=== PATIENT | male | born 1965 | race Caucasian/White ===

== ENCOUNTER 2017-01-18 10:28 | Inpatient (IN) | payer OTHER ==
[~2017-01-18] VITALS: Ht 175.3 cm; Wt 90.3 kg
[~2017-01-18 10:28] MED LIST: ASPI-770 PO; DILT180C53 PO; LISI-170 PO; METF10002 PO
[2017-01-18] MEDS ORDERED: DILTIAZEM 5 MG/ML, 5ML ONE (10:56)
[2017-01-18] MEDS ORDERED: LORazepam 2 MG/ML, 1ML IVPush PRN ×2 (11:00→12:00)
[2017-01-18] MEDS ORDERED: DILTIAZEM 5 MG/ML, 5ML IV ONE ×2 (11:00→12:00)
[2017-01-18] MEDS ORDERED: SODIUM CHLORIDE 0.9% 1,000ML IVBOLUS ONE (11:00)
[2017-01-18] MEDS ORDERED: SODIUM CHLORIDE FLUSH 10ML SYR IVF ONE (11:00)
[2017-01-18] MEDS ORDERED: MAGNESIUM SULFATE 1 GM, THIAMINE 100 MG, FOLIC ACID 1 MG, MVI ADULT 10 ML in SODIUM CHL... IV ONE (11:00)
[2017-01-18 11:25] LABS: ASPARTATE AMINO TRANSFERASE 15 U/L (15-37); BLOOD UREA NITROGEN 10 mg/dL (7-18)
[2017-01-18 11:31] LABS: IS PT STATUS REG ER OR PRE ER? YES
[2017-01-18] MEDS ORDERED: DILTIAZEM 125 MG in DEXTROSE 5% 100 ML IV SCH (11:41)
[2017-01-18] MEDS ORDERED: SODIUM CHLORIDE FLUSH 10ML SYR IVF PRN (12:00)
[2017-01-18] MEDS ORDERED: DILTIAZEM 125 MG in SODIUM CHLORIDE 0.9% 100 ML IV SCH (12:00)
[2017-01-18] MEDS ORDERED: LORazepam 2 MG/ML, 1ML ONE (12:22)
[2017-01-18] MEDS ORDERED: ENOXAPARIN 40 MG/0.4 ML SQ SCH (14:30)
[2017-01-18] MEDS ORDERED: LORazepam 2 MG/ML, 1ML IV PRN ×3 (14:30)
[2017-01-18] MEDS ORDERED: ACETAMINOPHEN 325 MG TABLET PO PRN (14:30)
[2017-01-18] MEDS ORDERED: ONDANSETRON 2MG/ML, 2ML IVP PRN (14:30)
[2017-01-18] MEDS: NICOTINE 14MG/24 HR PATCH.TD24 TD SCH (14:30)
[2017-01-18] MEDS ORDERED: DOCUSATE 100 MG CAPSULE PO PRN (14:30)
[2017-01-18] MEDS ORDERED: MORPHINE SULFATE 4 MG/ML, 1ML IVPush PRN (14:30)
[2017-01-18] MEDS ORDERED: LORazepam 1MG TABLET PO PRN (14:30)
[2017-01-18] MEDS ORDERED: POLYETHYLENE GLYCOL 17 GM PACKET PO PRN (14:30)
[2017-01-18] MEDS ORDERED: LORazepam 0.5MG TABLET PO PRN (14:30)
[2017-01-18 14:55] VITALS: BP 137/97
[2017-01-18] MEDS: INSULIN REGULAR 100 UNITS/ML, 3ML VIAL SQ-INSULIN SCH ×2 (16:00→20:22)
[2017-01-18 16:08] VITALS: BP 158/89
[2017-01-18] MEDS: NS + 20MEQ KCL 1,000 ML IV SCH (20:21)
[2017-01-18] MEDS: BEER 12 OZ CAN PO SCH (20:21)
[2017-01-18 21:34] VITALS: BP 145/82
[2017-01-18] MEDS: DILTIAZEM 125 MG in SODIUM CHLORIDE 0.9% 100 ML IV PRN (21:47)
[2017-01-19 02:40] VITALS: BP 154/97
[2017-01-19] MEDS: LORazepam 1MG TABLET PO PRN ×2 (02:44→23:56)
[2017-01-19] MEDS: NS + 20MEQ KCL 1,000 ML IV SCH ×2 (05:04→11:00)
[2017-01-19] MEDS: BEER 12 OZ CAN PO SCH ×4 (05:41→20:55)
[2017-01-19 05:49] LABS: BLOOD UREA NITROGEN 8 mg/dL (7-18)
[2017-01-19 05:57] LABS: IS PT STATUS REG ER OR PRE ER? NO
[2017-01-19 07:35] VITALS: BP 137/93
[2017-01-19] MEDS: INSULIN REGULAR 100 UNITS/ML, 3ML VIAL SQ-INSULIN SCH ×4 (07:37→20:56)
[2017-01-19] MEDS: DILTIAZEM 125 MG in SODIUM CHLORIDE 0.9% 100 ML IV PRN (10:36)
[2017-01-19] MEDS: DILTIAZEM CD 180 MG CAP.ER.24H PO SCH (10:40)
[2017-01-19] MEDS: ASPIRIN 81 MG TABLET CHEW PO SCH (10:40)
[2017-01-19] MEDS: metFORMIN 500 MG TABLET PO SCH (10:41)
[2017-01-19] MEDS: LISINOPRIL 20 MG TABLET PO SCH (10:41)
[2017-01-19] MEDS: APIXABAN 5 MG TABLET PO SCH ×2 (11:42→20:56)
[2017-01-19] MEDS: POTASSIUM CHLORIDE 20 MEQ, MAGNESIUM SULFATE 1 GM, THIAMINE 100 MG, FOLIC ACID 1 MG, MV... IV SCH (13:35)
[2017-01-19 14:23] VITALS: BP 124/85
[2017-01-19] MEDS: NICOTINE 14MG/24 HR PATCH.TD24 TD SCH (14:30)
[2017-01-19] MEDS: OXYcodone IR 5MG TABLET PO PRN ×2 (17:43→21:41)
[2017-01-19 19:54] VITALS: BP 124/86
[2017-01-20 01:45] VITALS: BP 142/93
[2017-01-20] MEDS: BEER 12 OZ CAN PO SCH ×3 (05:16→16:00)
[2017-01-20 07:20] VITALS: BP 147/95
[2017-01-20] MEDS: metFORMIN 500 MG TABLET PO SCH (07:51)
[2017-01-20] MEDS: APIXABAN 5 MG TABLET PO SCH (07:52)
[2017-01-20] MEDS: DILTIAZEM CD 180 MG CAP.ER.24H PO SCH (07:55)
[2017-01-20] MEDS: LISINOPRIL 20 MG TABLET PO SCH (07:55)
[2017-01-20] MEDS: ASPIRIN 81 MG TABLET CHEW PO SCH (07:55)
[2017-01-20] MEDS: INSULIN REGULAR 100 UNITS/ML, 3ML VIAL SQ-INSULIN SCH ×3 (08:27→16:00)
[2017-01-20] MEDS ORDERED: DILTIAZEM 5 MG/ML, 5ML IVPush ONE (10:00)
[2017-01-20] MEDS: POTASSIUM CHLORIDE 20 MEQ, MAGNESIUM SULFATE 1 GM, THIAMINE 100 MG, FOLIC ACID 1 MG, MV... IV SCH (12:56)
[2017-01-20 13:32] VITALS: BP 129/89
[2017-01-20] MEDS: NICOTINE 14MG/24 HR PATCH.TD24 TD SCH (14:30)
[2017-01-20] MEDS ORDERED: DILTIAZEM 90 MG CAP.ER.12H PO SCH (17:00)
[2017-01-20] MEDS ORDERED: DILT180C53 PO ×2 (17:29→17:33)
[2017-01-20] MEDS ORDERED: APIX5TAB PO (17:29)
== END 2017-01-20 18:13 | disposition home or self-care (01) | DRG 308 ==
LOC: ED 11:06 → EDIP 11:49 → 5SO 13:28
PROVIDERS: ADMIT Family Medicine; ATTEND Family Medicine
PROC: 0T9B70Z Drainage of Bladder with Drainage Device, Via Natural or Artificial Opening (ICD-10-PCS; principal; 2017-01-20)
DX: I48.0 Paroxysmal atrial fibrillation (principal); I50.31 Acute diastolic (congestive) heart failure; F10.239 Alcohol dependence with withdrawal, unspecified; D68.59 Other primary thrombophilia; G72.1 Alcoholic myopathy; I11.0 Hypertensive heart disease with heart failure; I48.92 Unspecified atrial flutter; E11.9 Type 2 diabetes mellitus without complications; E07.9 Disorder of thyroid, unspecified; F17.200 Nicotine dependence, unspecified, uncomplicated; I27.2 Other secondary pulmonary hypertension; Z82.3 Family history of stroke; Z80.0 Family history of malignant neoplasm of digestive organs; Z66 Do not resuscitate; Z91.19 Patient's noncompliance with other medical treatment and regimen
CPT/HCPCS: 36415; 71010; 80048; 80053; 81003; 82962; 83735; 83880; 84100; 84443; 84484; 85025; 85520; 85610; 93005; 96361; 96374; 96375; 96376; 99285; J1650; J1815; J3411; J3475; J3480; J2060; J7030

== ENCOUNTER 2020-03-08 14:22 | Emergency (ER) | payer OTHER ==
[~2020-03-08] VITALS: Ht 175.3 cm; Wt 89.0 kg
[~2020-03-08 14:22] MED LIST changes: +APIX5TAB PO; -ASPI-770 PO; +ASPI81TA59 PO
--- NOTE | 2020-03-08 15:27 | NUR ---
BREAK RN. PT STATES DIZZINESS STARTING THIS AM. STATES HE WENT TO WORK AND CONTINUED TO FEEL DIZZY, 911 CALLED AND PT REFUSED TRANSPORT. PT DROVE SELF TO ER. PT IS CURRENTLY A&OX4, ABLE TO ANSWER ALL QUESTIONS AND FOLLOWS COMMANDS. EKG COMPLETED IN TRIAGE. PT PLACED ON MONITORS, IV STARTED PER ORDERS. IVF BOLUS INITIATED, LABS DRAWN AND SENT TO LAB. PT IN NO DISTRESS.
[2020-03-08] MEDS ORDERED: SODIUM CHLORIDE 0.9% 1,000ML IVBOLUS ONE (15:30)
[2020-03-08] MEDS ORDERED: SODIUM CHLORIDE FLUSH 10ML SYR IVF ONE (15:30)
[2020-03-08 15:34] LABS: BASOPHILS # (AUTO) 0.05 x10^3/uL (0-0.1); BASOPHILS % (AUTO) 1 % (0-1); EOSINOPHILS # (AUTO) 0.02 x10^3/uL (0-0.4); EOSINOPHILS % (AUTO) 0 % (1-7); LYMPHOCYTES # (AUTO) 1.79 x10^3/uL (1-3.4); LYMPHOCYTES % (AUTO) 20 % (22-44); MD NO; MEAN CORPUSCULAR HEMOGLOBIN 32.6 pg (27.5-34.5); MEAN CORPUSCULAR HGB CONC 33.6 g/dL (33.2-36.2); MEAN PLATELET VOLUME 7.2 fL (7.4-10.4); MONOCYTES # (AUTO) 0.47 x10^3/uL (0.2-0.8); MONOCYTES % (AUTO) 5 % (2-9); NEUTROPHILS # (AUTO) 6.65 x10^3/uL (1.8-6.8); NEUTROPHILS % (AUTO) 74 % (42-75); PLATELET COUNT 229 x10^3/uL (130-400); RED BLOOD COUNT 5.32 x10^6/uL (4.38-5.82); RED CELL DISTRIBUTION WIDTH 13.6 % (9.4-14.8)
[2020-03-08 15:36] LABS: ALANINE AMINOTRANSFERASE 56 U/L (12-78); ALBUMIN 3.5 g/dL (3.4-5.0); ANION GAP 13 mmol/L (5-15); CALCIUM 7.9 mg/dL (8.5-10.1); CHLORIDE 103 mmol/L (98-107); CREATININE 1.36 mg/dL (0.7-1.3)
[2020-03-08 15:39] LABS: ALKALINE PHOSPHATASE 62 U/L (45-117); BILIRUBIN,TOTAL 0.4 mg/dL (0.2-1.0); TOTAL PROTEIN 7.3 g/dL (6.4-8.2)
[2020-03-08 16:13] LABS: INTERNATIONAL NORMALIZED RATIO 2.88 (0.93-1.1); PROTHROMBIN TIME 30.9 Seconds (9.6-11.5)
[2020-03-08] MEDS ORDERED: LORazepam 2 MG/ML, 1ML ONE (17:08)
[2020-03-08] MEDS ORDERED: LORazepam 2 MG/ML, 1ML IVPush ONE (17:30)
[2020-03-08 17:44] VITALS: BP 134/88
== END 2020-03-08 17:47 | disposition home or self-care (01) ==
LOC: ED 16:24
DX: E86.0 Dehydration (principal); E86.1 Hypovolemia; F10.239 Alcohol dependence with withdrawal, unspecified; R10.84 Generalized abdominal pain; R06.02 Shortness of breath; R42 Dizziness and giddiness; I10 Essential (primary) hypertension; E11.9 Type 2 diabetes mellitus without complications; I48.91 Unspecified atrial fibrillation; I48.92 Unspecified atrial flutter; F17.200 Nicotine dependence, unspecified, uncomplicated; Y90.0 Blood alcohol level of less than 20 mg/100 ml
CPT/HCPCS: 71045; 80053; 82962; 83690; 85025; 85610; 85730; 93005; 96360; 99285; J7030

== ENCOUNTER 2020-03-09 14:22 | Emergency (ER) | payer OTHER ==
[~2020-03-09] VITALS: Ht 175.3 cm; Wt 88.0 kg
--- NOTE | 2020-03-09 14:59 | NUR ---
PT BIB [facility] FOR COMPLAINTS OF ACUTE ALCOHOL INTOXICATION. NO INJURY OR PHYSICAL COMPLAINT. PT STATES HE WOULD LIKE HELP GETTING SOBER AND INTO A TREATMENT CENTER. ERP AT BEDSIDE, PT HYPOTENSIVE. FLUID BOLUS ORDERED PER VERBAL ORDERS AND ADMINISTERED. PT A&Ox4, RESPONSIVE APPROPRIATELY. CENIES ANY FURTHER NEEDS AT THIS TIME. CALL LIGHT IN REACH.
[2020-03-09] MEDS ORDERED: THIAMINE 100 MG in SODIUM CHLORIDE 0.9% 50 ML IVPB ONE (15:00)
[2020-03-09] MEDS ORDERED: SODIUM CHLORIDE 0.9% 1,000ML IVBOLUS ONE ×2 (15:00→16:00)
[2020-03-09 15:26] LABS: BASOPHILS # (AUTO) 0.02 x10^3/uL (0-0.1); BASOPHILS % (AUTO) 0 % (0-1); EOSINOPHILS # (AUTO) 0.04 x10^3/uL (0-0.4); EOSINOPHILS % (AUTO) 1 % (1-7); LYMPHOCYTES # (AUTO) 2.29 x10^3/uL (1-3.4); LYMPHOCYTES % (AUTO) 36 % (22-44); MD NO; MEAN CORPUSCULAR HEMOGLOBIN 32.9 pg (27.5-34.5); MEAN CORPUSCULAR HGB CONC 33.8 g/dL (33.2-36.2); MEAN CORPUSCULAR VOLUME 97.4 fL (81-97); MONOCYTES # (AUTO) 0.67 x10^3/uL (0.2-0.8); MONOCYTES % (AUTO) 11 % (2-9); NEUTROPHILS # (AUTO) 3.35 x10^3/uL (1.8-6.8); NEUTROPHILS % (AUTO) 53 % (42-75); PLATELET COUNT 179 x10^3/uL (130-400); RED BLOOD COUNT 4.53 x10^6/uL (4.38-5.82); RED CELL DISTRIBUTION WIDTH 13.1 % (9.4-14.8)
[2020-03-09 15:33] LABS: CHLORIDE 108 mmol/L (98-107)
[2020-03-09 15:34] LABS: ALANINE AMINOTRANSFERASE 43 U/L (12-78); ALBUMIN 2.8 g/dL (3.4-5.0); ANION GAP 10 mmol/L (5-15); CALCIUM 7.2 mg/dL (8.5-10.1); CREATININE 1.06 mg/dL (0.7-1.3)
[2020-03-09 15:42] LABS: ALKALINE PHOSPHATASE 49 U/L (45-117); BILIRUBIN,TOTAL 0.4 mg/dL (0.2-1.0); TOTAL PROTEIN 5.9 g/dL (6.4-8.2)
[2020-03-09 16:55] LABS: ACETONE, SERUM Negative (Negative)
--- NOTE | 2020-03-09 17:19 | NUR ---
PT IN BED, EATING HIS MEAL AND TALKING ANIMATEDLY ON THE PHONE. DENIES ANY NEEDS OR CONCERNS AT THIS TIME. CALL LIGHT IN REACH.
--- NOTE | 2020-03-09 17:58 | NUR ---
PT UP TO RESTROOM, NO PHYSICAL ASSISTANCE NECESSARY. PT RETURNED TO BED WITHOUT ANY ISSUE. CALL LIGHT IN REACH.
[2020-03-09] MEDS ORDERED: CHLORDIAZEPOXIDE 25 MG CAPSULE ONE (21:29)
[2020-03-09] MEDS ORDERED: CHLORDIAZEPOXIDE 25 MG CAPSULE PO ONE (21:30)
--- NOTE | 2020-03-09 21:36 | NUR ---
task rn: pt ambulates to restroom with steady gait. pt iv d/c with tip intact. pt vss and updated in emr.
[2020-03-09 21:37] VITALS: BP 141/77
== END 2020-03-09 21:58 | disposition home or self-care (01) ==
LOC: ED 19:09
DX: F10.220 Alcohol dependence with intoxication, uncomplicated (principal); I95.9 Hypotension, unspecified; I10 Essential (primary) hypertension; E11.9 Type 2 diabetes mellitus without complications; I48.91 Unspecified atrial fibrillation; Z95.0 Presence of cardiac pacemaker; Y90.9 Presence of alcohol in blood, level not specified
CPT/HCPCS: 36415; 80053; 80307; 82010; 83690; 83930; 85025; 96360; 96361; 99283; J7030

== ENCOUNTER 2020-04-23 10:15 | Emergency (ER) | payer OTHER ==
[~2020-04-23] VITALS: Ht 175.3 cm; Wt 83.2 kg
[2020-04-23] MEDS ORDERED: WARF1TAB2 PO (10:36)
--- NOTE | 2020-04-23 10:37 | NUR ---
PT BROUGTH BACK FROM WITH CHIEF COMPLAINT OF BLURRED, CLOUDY VISION, AND HEADACHE SINCE FRIDAY.
--- NOTE | 2020-04-23 11:19 | NUR ---
Pt back from imaging
[2020-04-23 11:22] LABS: BASOPHILS # (AUTO) 0.03 x10^3/uL (0-0.1); BASOPHILS % (AUTO) 0 % (0-1); EOSINOPHILS # (AUTO) 0.11 x10^3/uL (0-0.4); EOSINOPHILS % (AUTO) 1 % (1-7); LYMPHOCYTES # (AUTO) 2.04 x10^3/uL (1-3.4); LYMPHOCYTES % (AUTO) 22 % (22-44); MD NO; MEAN CORPUSCULAR HEMOGLOBIN 31.3 pg (27.5-34.5); MEAN CORPUSCULAR HGB CONC 32.9 g/dL (33.2-36.2); MEAN PLATELET VOLUME 7.3 fL (7.4-10.4); MONOCYTES # (AUTO) 0.73 x10^3/uL (0.2-0.8); MONOCYTES % (AUTO) 8 % (2-9); NEUTROPHILS # (AUTO) 6.45 x10^3/uL (1.8-6.8); NEUTROPHILS % (AUTO) 69 % (42-75); PLATELET COUNT 205 x10^3/uL (130-400); RED BLOOD COUNT 4.86 x10^6/uL (4.38-5.82); RED CELL DISTRIBUTION WIDTH 12.2 % (9.4-14.8)
[2020-04-23 11:29] LABS: INTERNATIONAL NORMALIZED RATIO 2.19 (0.93-1.1); PROTHROMBIN TIME 23.4 Seconds (9.6-11.5)
[2020-04-23 11:33] LABS: ALANINE AMINOTRANSFERASE 28 U/L (12-78); ALBUMIN 3.4 g/dL (3.4-5.0); ANION GAP 5 mmol/L (5-15); CALCIUM 9.1 mg/dL (8.5-10.1); CHLORIDE 106 mmol/L (98-107); CREATININE 0.95 mg/dL (0.7-1.3)
[2020-04-23 11:35] LABS: ALKALINE PHOSPHATASE 60 U/L (45-117); BILIRUBIN,TOTAL 0.7 mg/dL (0.2-1.0); TOTAL PROTEIN 6.8 g/dL (6.4-8.2)
--- NOTE | 2020-04-23 12:29 | NUR ---
MRI screening done.
--- NOTE | 2020-04-23 13:42 | NUR ---
pt resting in bed, call light in reach. MRI and pace maker verified, rep will be in around 1400.
--- NOTE | 2020-04-23 14:20 | NUR ---
PT to MRI
--- NOTE | 2020-04-23 14:49 | NUR ---
REPORT RECEIVED FROM [facility]. PT RESTING ON [employer] W/ CALL LIGHT IN REACH. RESP EVEN AND UNLABORED, SANDI. AWAITING MRI RESULTS.
[2020-04-23 14:51] VITALS: BP 133/86
--- NOTE | 2020-04-23 15:16 | NUR ---
ALL TESTS RESULTED. PT IS UP FOR RECHECK AT THIS TIME.
--- NOTE | 2020-04-23 16:18 | NUR ---
Patient given discharge instructions and they have confirmed that they understand the instructions. Patient ambulatory with steady gait.
== END 2020-04-23 16:19 | disposition home or self-care (01) ==
LOC: ED 12:04
DX: H53.2 Diplopia (principal); R51 Headache; I48.91 Unspecified atrial fibrillation; I10 Essential (primary) hypertension; E11.9 Type 2 diabetes mellitus without complications; Z79.01 Long term (current) use of anticoagulants
CPT/HCPCS: 36415; 70450; 70551; 80053; 85025; 85610; 99285